=== PATIENT | female | born 1990 | race African-American/Black ===

== ENCOUNTER 2018-03-21 23:21 | Outpatient (CLI) | payer OTHER ==
[2018-03-22 00:05] VITALS: BP 108/68
--- NOTE | 2018-03-22 01:51 | Ultrasound Report ---
FINAL REPORT PROCEDURE: US OB LIMITED TECHNIQUE: Real-time limited sonographic examination was performed for evaluation of size, position, heartbeat, fluid volume for each fetus with image documentation (1 or more fetuses). CPT 65157 HISTORY: leaking fluid COMPARISON: No prior studies are available for comparison. FINDINGS: Amniotic fluid index is 11.4 centimeters which is within normal limits. Fetus is in cephalic presentation. Heart rate is 150 beats per minute. Placenta is fundal and grade 1. There is no previa or abruption. IMPRESSION: Normal amniotic fluid.
== END 2018-03-22 01:38 | disposition home or self-care (01) ==
LOC: TRG 23:21
PROVIDERS: ATTEND Obstetrics & Gynecology
DX: O47.03 False labor before 37 completed weeks of gestation, third trimester (principal); Z3A.36 36 weeks gestation of pregnancy
CPT/HCPCS: 59025; 76815

== ENCOUNTER 2018-03-25 17:03 | Outpatient (CLI) | payer OTHER ==
[2018-03-25 19:35] VITALS: BP 125/78
--- NOTE | 2018-03-25 20:35 | Ultrasound Report ---
FINAL REPORT PROCEDURE: US OB LIMITED TECHNIQUE: Real-time limited sonographic examination was performed for evaluation of amniotic fluid index for each fetus with image documentation (1 or more fetuses). CPT 53902 HISTORY: SENAIT COMPARISON: 03/22/2018 FINDINGS: There is single intrauterine gestation with a heart rate of 139 beats per minute. Amniotic fluid index is 19 centimeters IMPRESSION: Amniotic fluid index is 19 centimeters
== END 2018-03-25 20:35 | disposition home or self-care (01) ==
LOC: TRG 17:03 → LD 18:28 → TRG 20:35
PROVIDERS: ATTEND Obstetrics & Gynecology
DX: O47.1 False labor at or after 37 completed weeks of gestation (principal); Z3A.37 37 weeks gestation of pregnancy
CPT/HCPCS: 59025; 76815